=== PATIENT | male | born 1985 | race Caucasian/White ===

== ENCOUNTER 2017-04-08 10:42 | Emergency (ER) | payer OTHER ==
[2017-04-08 10:43] VITALS: BMI 27.6
[2017-04-08 10:48] VITALS: BP 113/73; PULSE 85; RESP 18; TEMP 97.3; O2SAT 98
--- NOTE | 2017-04-08 11:47 | C.PDOC ---
History Of Present Illness 31 y/o male presents to the ED with complains of persistent yellow colored ejaculate, chronic left testicular pain and the inability to make girlfriend . Pt has had 4 testicular US in the past, most recent 09/2016 all normal. Pt seen by PMD and urologists Karina 05/2014 and Trena 03/2015. Pt seeking continued follow up. Denies fever, chills, or any other complaints. Chief Complaint (Nursing): Male Genitourinary History Per: Patient History/Exam Limitations: no limitations Onset/Duration Of Symptoms: Days Current Symptoms Are (Timing): Still Present Severity: Mild Quality Of Discomfort: "Pain" Associated Symptoms: denies: Fever, Chills Alleviating Factors: None Recent travel outside of the [place]: No Past Medical History Reviewed: Historical Data, Nursing Documentation, Vital Signs Vital Signs: Last Vital Signs Temp 97.3 F L 04/08/17 10:48 Pulse 85 04/08/17 10:48 Resp 18 04/08/17 10:48 BP 113/73 04/08/17 10:48 Pulse Ox 98 04/08/17 11:47 Family History: States: Unknown Family Hx - Social History Hx Tobacco Use: No Hx Alcohol Use: No Hx Substance Use: No - Immunization History Hx Tetanus Toxoid Vaccination: No Hx Influenza Vaccination: No Hx Pneumococcal Vaccination: No Review Of Systems Except As Marked, All Systems Reviewed And Found Negative. Constitutional: Negative for: Fever, Chills Genitourinary: Positive for: Other (left testicular pain). Negative for: Dysuria, Hematuria Physical Exam - Physical Exam Appears: Non-toxic, No Acute Distress Skin: Warm, Dry, No Rash Head: Atraumatic, Normacephalic Gastrointestinal/Abdominal: Normal Exam, Soft, No Tenderness Male Genital: Normal Inspection, No Testicular Tenderness, No Testicular Swelling, Other (Penis normal, no swelling) Extremity: Bilateral: Atraumatic Neurological/Psych: Oriented x3, Normal Speech ED Course And Treatment O2 Sat by Pulse Oximetry: 98 (room air) Pulse Ox Interpretation: Normal Medical Decision Making Medical Decision Making: chronic L testicular discomfort, ? 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 many prior normal testicular US's 2 prior Urology evals (unable to view the notes) normal exam now, chronic issues. Most pressing seems to be infertility Refer back to Dr. Albrecht (seen 03/16) for re-eval, [facility]. Disposition Doctor Will See Patient In The: Office Counseled Patient/Family Regarding: Studies Performed, Diagnosis - Disposition Referrals: [facility] [Outside] Jah Albrecht MD [Staff Provider] - Disposition: HOME/ ROUTINE Disposition Time: 11:46 Condition: GOOD Additional Instructions: Llama a Dr. Albrecht para hacer wendy para re-evaluacion' Ibuprofeno 400-600 mg cada 6 horas para dolor de los testiculos. Instructions: Testicle Pain (ED) Print Language: WELSH - Clinical Impression Clinical Impression: Testicular pain, Infertility - Scribe Statement The provider has reviewed the documentation as recorded by the Scribmariza Sheth Provider Attestation: All medical record entries made by the Scribe were at my direction and personally dictated by me. I have reviewed the chart and agree that the record accurately reflects my personal performance of the history, physical exam, medical decision making, and the department course for this patient. I have also personally directed, reviewed, and agree with the discharge instructions and disposition.
== END 2017-04-08 12:04 | disposition home or self-care (01) ==
LOC: C.ER 10:42
DX: N50.812 Left testicular pain (principal); N46.9 Male infertility, unspecified

== ENCOUNTER 2018-01-19 10:24 | Emergency (ER) | payer OTHER ==
[2018-01-19 10:24] VITALS: BMI 27.7
[2018-01-19 10:35] VITALS: O2SAT 100
[2018-01-19] MEDS ORDERED: Aluminum Hydroxide/Magnesium Hydroxide Susp (30 mL) PO STA (11:09)
[2018-01-19] MEDS ORDERED: Aluminum Hydroxide/Magnesium Hydroxide Susp (30 mL) ONE (11:56)
--- NOTE | 2018-01-19 12:03 | C.PDOC ---
History Of Present Illness 32 year old male presents to the ED for evaluation epigastric abdominal pain which began around 2 week ago. Patient reports he feels bloated and his pain is worse with eating. Patient has been taking Pepcid and Odorless Garlic for the past 5 days without relief. Patient underwent an endoscopy around 2 months ago. He was prescribed omeprazole but was unable to fill the prescription because he went to the [facility] for around 2 months. Patient denies fever, chills , nausea, vomiting. Time Seen by Provider: 01/19/18 10:54 Chief Complaint (Nursing): Abdominal Pain History Per: Patient History/Exam Limitations: no limitations Current Symptoms Are (Timing): Still Present Location Of Pain/Discomfort: Epigastric Radiation Of Pain To:: None Quality Of Discomfort: "Pain" Exacerbating Factors: Food Additional History Per: Patient Past Medical History Reviewed: Historical Data, Nursing Documentation, Vital Signs Vital Signs: Last Vital Signs Temp 97.6 F 01/19/18 12:12 Pulse 70 01/19/18 12:12 Resp 16 01/19/18 12:12 BP 119/76 01/19/18 12:12 Pulse Ox 100 01/19/18 16:27 - Medical History PMH: No Chronic Diseases Surgical History: No Surg Hx Family History: States: Unknown Family Hx - Social History Hx Tobacco Use: No Hx Alcohol Use: Yes Hx Substance Use: No - Immunization History Hx Tetanus Toxoid Vaccination: No Hx Influenza Vaccination: No Hx Pneumococcal Vaccination: No Review Of Systems Constitutional: Negative for: Fever, Chills Gastrointestinal: Positive for: Abdominal Pain. Negative for: Nausea, Vomiting Physical Exam - Physical Exam Appears: Non-toxic, No Acute Distress Skin: Normal Color, Warm, Dry Head: Atraumatic, Normacephalic Eye(s): bilateral: Normal Inspection, EOMI Oral Mucosa: Moist Neck: Supple Chest: Symmetrical, No Deformity, No Tenderness Cardiovascular: Rhythm Regular, No Murmur Respiratory: Normal Breath Sounds, No Rales, No Rhonchi, No Wheezing Gastrointestinal/Abdominal: Soft, Tenderness (mild epigastric), No Guarding, No Rebound Back: Normal Inspection, No CVA Tenderness Extremity: Normal ROM, Capillary Refill (less than 2 seconds ) Neurological/Psych: Oriented x3, Normal Speech Gait: Steady ED Course And Treatment O2 Sat by Pulse Oximetry: 100 (on RA ) Pulse Ox Interpretation: Normal Medical Decision Making Medical Decision Making: Impression: 32 year old male with abdominal pain Plan: * Bentyl PO * Maalox PO * Pepcid PO Patient remained afebrile in no distress. Sitting comfortably talking on phone. Abdomen soft and nondistended. He reports pain mildly improving. I explained endoscopy likely showed gastritis and he should take Omeprazole and dietary changes. Disposition Counseled Patient/Family Regarding: Diagnosis, Need For Followup, Rx Given - Disposition Referrals: [facility] [Outside] [facility] [Outside] [facility]] Disposition: HOME/ ROUTINE Disposition Time: 12:02 Condition: GOOD Additional Instructions: Por favor, siga con la clnica para ms cuidados Wiconsico medicamentos a diario para la gastritis Evite cualquier Advil, Aleve o ibuprofeno Evite la cafena, los alimentos grasos o grasosos Prescriptions: Calcium Carbonate/Simethicone [Maalox Advanced Tab Chew] 1 ctb PO Q8 PRN #15 ctb PRN Reason: Gi Distress Omeprazole 20 mg PO DAILY #21 capsule. Instructions: Gastritis Forms: [employer] (Polish) Print Language: IRISH - POA Present On Arrival: None - Clinical Impression Clinical Impression: Abdominal discomfort, Gastritis - PA / GEOSPATIAL SPECIALIST / Resident Statement MD/DO has reviewed & agrees with the documentation as recorded. - Scribe Statement The provider has reviewed the documentation as recorded by the Scribe (Bing Oneal) All medical record entries made by the Scribe were at my direction and personally dictated by me. I have reviewed the chart and agree that the record accurately reflects my personal performance of the history, physical exam, medical decision making, and the department course for this patient. I have also personally directed, reviewed, and agree with the discharge instructions and disposition.
[2018-01-19 12:19] VITALS: BP 119/76; PULSE 70; RESP 16; TEMP 97.6
== END 2018-01-19 12:39 | disposition home or self-care (01) ==
LOC: C.ER 10:24
DX: K29.70 Gastritis, unspecified, without bleeding (principal)

== ENCOUNTER 2018-02-10 10:16 | Emergency (ER) | payer OTHER ==
[2018-02-10 10:17] VITALS: BMI 27.7
[2018-02-10 10:30] VITALS: TEMP 98.1
[2018-02-10] MEDS ORDERED: Sodium Chloride 0.9% 1,000 ML IV ONE (11:12)
--- NOTE | 2018-02-10 11:32 | C.PDOC ---
History Of Present Illness 32 y/o male presents to the ED complaining of intermittent abdominal pain for the past few months. Associated with diarrhea. Patient was seen here last month for similar complaints, given medication but did not have work up. He denies nausea, vomiting, fever, or chills. Time Seen by Provider: 02/10/18 11:01 Chief Complaint (Nursing): Abdominal Pain History Per: Patient History/Exam Limitations: no limitations Onset/Duration Of Symptoms: Days Current Symptoms Are (Timing): Still Present Associated Symptoms: Diarrhea Past Medical History Reviewed: Historical Data, Nursing Documentation, Vital Signs Vital Signs: Last Vital Signs Temp 98.1 F 02/10/18 10:27 Pulse 85 02/10/18 12:59 Resp 16 02/10/18 12:59 BP 124/74 02/10/18 12:59 Pulse Ox 96 02/10/18 13:14 Other Surgeries: Testicular surgery Family History: States: Unknown Family Hx - Social History Hx Tobacco Use: No Hx Alcohol Use: Yes Hx Substance Use: No - Immunization History Hx Tetanus Toxoid Vaccination: No Hx Influenza Vaccination: No Hx Pneumococcal Vaccination: No Review Of Systems Except As Marked, All Systems Reviewed And Found Negative. Constitutional: Negative for: Fever, Chills Gastrointestinal: Positive for: Abdominal Pain, Diarrhea. Negative for: Nausea , Vomiting Physical Exam - Physical Exam Appears: Non-toxic, No Acute Distress Skin: Normal Color, Warm, Dry Head: Atraumatic, Normacephalic Eye(s): bilateral: Normal Inspection, PERRL, EOMI Oral Mucosa: Moist Neck: Normal, Normal ROM Chest: Symmetrical Cardiovascular: Rhythm Regular, No Murmur Respiratory: Normal Breath Sounds, No Rales, No Rhonchi, No Wheezing Gastrointestinal/Abdominal: Soft, Tenderness (to the lower abdomen), No Guarding , No Rebound Extremity: Bilateral: Atraumatic, Normal Color And Temperature, Normal ROM Neurological/Psych: Oriented x3, Normal Speech ED Course And Treatment - Laboratory Results Result Diagrams: 02/10/18 11:31 02/10/18 11:31 Lab Interpretation: Normal O2 Sat by Pulse Oximetry: 96 (RA) Pulse Ox Interpretation: Normal - CT Scan/US No standard instances Other Rad Studies (CT/US): Read By Radiologist, Radiology Report Reviewed CT/US Interpretation: FINDINGS: LOWER THORAX: Unremarkable. LIVER: Unremarkable. No gross lesion or ductal dilatation. GALLBLADDER AND BILE DUCTS : Unremarkable. PANCREAS: Unremarkable. No gross lesion or ductal dilatation. SPLEEN: Unremarkable. ADRENALS: Unremarkable. No mass. KIDNEYS AND URETERS: Punctate right interpolar nonobstructive calculus. Sub centimeter left interpolar cyst. No hydronephrosis. No solid mass. VASCULATURE: Unremarkable. No aortic aneurysm. BOWEL: Unremarkable. No obstruction. No gross mural thickening. APPENDIX: Unremarkable. Normal appendix. PERITONEUM: Unremarkable. No free fluid. No free air. LYMPH NODES: Unremarkable. No enlarged lymph nodes. BLADDER: Unremarkable. REPRODUCTIVE: Unremarkable. BONES: No acute fracture. OTHER FINDINGS: None. IMPRESSION: No acute abdominal pelvic pathology. Punctate right interpolar nonobstructive calculus. No obstructive uropathy or evidence of recently passed genitourinary calculus. Progress Note: Treated with IVF NSS. On re-evaluation abdomen soft non-tender Reassessment Condition: Improved Medical Decision Making Medical Decision Making: Initial Impression: 32 y/o male with abdominal pain and diarrhea Time: 11:12 Initial Plan: * Blood work * Urinalysis * CT abdomen/pelvis * IVF hydration Disposition Counseled Patient/Family Regarding: Studies Performed, Diagnosis, Need For Followup - Disposition Referrals: [facility] [Outside] [facility] [Outside] Disposition: HOME/ ROUTINE Disposition Time: 13:00 Condition: STABLE Additional Instructions: Follow up with clinic or PMD for further evaluation Instructions: Acute Abdomen (Belly Pain) Forms: [facility] (Yakut) Print Language: SENEGALESE - POA Present On Arrival: None - Clinical Impression Clinical Impression: Abdominal pain - PA / DIRECTOR OF INDIVIDUAL GIVING / Resident Statement MD/DO has reviewed & agrees with the documentation as recorded. - Scribe Statement The provider has reviewed the documentation as recorded by the Scribe (Kasandra Hoskins) All medical record entries made by the Scribe were at my direction and personally dictated by me. I have reviewed the chart and agree that the record accurately reflects my personal performance of the history, physical exam, medical decision making, and the department course for this patient. I have also personally directed, reviewed, and agree with the discharge instructions and disposition.
[2018-02-10 11:37] LABS: BASO # 0.1 K/uL (0.0-0.2); BASO % 0.9 % (0.0-2.0); EOS # 0.1 K/uL (0.0-0.7); EOS % 1.8 % (0.0-4.0); HEMOGLOBIN 14.7 g/dL (12.0-18.0); LYMPH # 2.1 K/uL (1.0-4.3); LYMPH % 38.5 % (20.0-40.0); MEAN CELL VOLUME 89.4 fL (80.0-94.0); MEAN CORPUSCULAR HEMOGLOBIN 31.1 pg (27.0-31.0); MEAN CORPUSCULAR HGB CONC 34.8 g/dL (33.0-37.0); MEAN PLATELET VOLUME 8.9 fL (7.2-11.7); MONO # 0.5 K/uL (0.0-0.8); MONO % 8.7 % (0.0-10.0); NEUT # 2.8 K/uL (1.8-7.0); NEUT % 50.1 % (50.0-75.0); NRBC % 0.1 % (0.0-2.0); RBC 4.72 Mil/uL (4.40-5.90); RED CELL DISTRIBUTION WIDTH 13.5 % (11.5-14.5); WHITE BLOOD COUNT 5.6 K/uL (4.8-10.8)
[2018-02-10 11:47] LABS: ALB/GLOB RATIO 1.3 (1.0-2.1); ALBUMIN 4.5 g/dL (3.5-5.0); ALT/SGPT 51 U/L (21-72); AST/SGOT 32 U/L (17-59); BLOOD UREA NITROGEN 15 mg/dL (9-20); CALCIUM 9.5 mg/dl (8.6-10.4); GFR AFRICAN-AMERICAN > 60; GFR NON-AFRICAN AMERICAN > 60; LIPASE 73 U/L (23-300)
[2018-02-10] MEDS ORDERED: Sodium Chloride 0.9% 1,000 ML ONE (11:59)
--- NOTE | 2018-02-10 12:01 | CT ---
PROCEDURE: CT Abdomen and Pelvis without intravenous contrast HISTORY: Pain COMPARISON: None. TECHNIQUE: Contiguous images were obtained from the domes of the diaphragms to the upper thighs without the administration of intravenous contrast. Oral contrast was not administered. Radiation dose: Total exam DLP = 553.3 mGy-cm. This CT exam was performed using one or more of the following dose reduction techniques: Automated exposure control, adjustment of the mA and/or kV according to patient size, and/or use of iterative reconstruction technique. FINDINGS: LOWER THORAX: Unremarkable. LIVER: Unremarkable. No gross lesion or ductal dilatation. GALLBLADDER AND BILE DUCTS: Unremarkable. PANCREAS: Unremarkable. No gross lesion or ductal dilatation. SPLEEN: Unremarkable. ADRENALS: Unremarkable. No mass. KIDNEYS AND URETERS: Punctate right interpolar nonobstructive calculus. Sub centimeter left interpolar cyst. No hydronephrosis. No solid mass. VASCULATURE: Unremarkable. No aortic aneurysm. BOWEL: Unremarkable. No obstruction. No gross mural thickening. APPENDIX: Unremarkable. Normal appendix. PERITONEUM: Unremarkable. No free fluid. No free air. LYMPH NODES: Unremarkable. No enlarged lymph nodes. BLADDER: Unremarkable. REPRODUCTIVE: Unremarkable. BONES: No acute fracture. OTHER FINDINGS: None. IMPRESSION: No acute abdominal pelvic pathology. Punctate right interpolar nonobstructive calculus. No obstructive uropathy or evidence of recently passed genitourinary calculus.
[2018-02-10 12:23] LABS: SQUAMOUS EPITHIAL < 1 /hpf (0-5); URINE BACTERIA RARE (<OCC); URINE BILIRUBIN NEGATIVE (NEGATIVE); URINE BLOOD NEGATIVE (NEGATIVE); URINE CLARITY Clear (Clear); URINE COLOR Yellow (YELLOW); URINE GLUCOSE (UA) NORMAL (Normal); URINE LEUKOCYTE ESTERASE NEG Leu/uL (Negative); URINE PROTEIN NEGATIVE (NEGATIVE); URINE UROBILINOGEN NORMAL mg/dL (0.2-1.0)
[2018-02-10 13:00] VITALS: BP 124/74; PULSE 85; RESP 16
[2018-02-10 13:14] VITALS: O2SAT 96
== END 2018-02-10 13:35 | disposition home or self-care (01) ==
LOC: C.ER 10:16
DX: R10.9 Unspecified abdominal pain (principal)
CPT/HCPCS: 74176; 80053; 81001; 83690; 85025; 96360; 99284; J7040